=== PATIENT | female | born 1960 | race Hispanic/Latino ===

== ENCOUNTER 2023-10-28 11:27 | Emergency (ER) | payer OTHER, SELFPAY ==
[2023-10-28 11:32] VITALS: BP 152/96
[2023-10-28 12:28] VITALS: BMI 20.2
[2023-10-28 12:36] VITALS: BP 145/78
[2023-10-28 12:43] LABS: % Basophils 0.7 % (0-2); % Eosinophils 1.3 % (0-6); % Immature Granulocytes 0.4 % (0-0.5); % Lymphocytes 16.2 % (20.5-51.1); % Monocytes 7.4 % (1.7-9.3); Absolute Basophils 0.1 10^3/uL (0-0.2); Absolute Eosinophils 0.2 10^3/uL (0-0.7); Absolute Immature Granulocytes 0.1 10^3/uL (0-0.05); Absolute Lymphocytes 1.8 10^3/uL (1.2-3.4); Absolute Monocytes 0.8 10^3/uL (0.1-0.6); Absolute Neutrophils 8.3 10^3/uL (1.4-6.5); Hematocrit 35.2 % (37.0-47.0); Hemoglobin 11.5 g/dL (12.0-16.0); Mean Corp Hgb Conc. 32.7 g/dL (33.0-37.0); Mean Corpuscular Hgb 29.2 pg (27.0-31.0); Mean Corpuscular Volume 89.3 fL (81.0-99.0); Mean Platelet Volume 8.2 fL (7.4-10.4); Nucleated Red Blood Cells % 0 %; Platelet Count 350 10^3/uL (130-400); Red Blood Cell Count 3.94 10^6/uL (4.20-5.40); Red Cell Dist. Width 16.7 % (11.5-14.5); White Blood Cell Count 11.2 10^3/uL (4.8-10.8)
[2023-10-28 12:49] LABS: ALT (SGPT) 23 U/L (0-35); AST (SGOT) 23 U/L (14-36); Albumin 3.6 g/dl (3.5-5.0); Alkaline Phosphatase 104 U/L (38-126); Blood Urea Nitrogen 11 mg/dl (7-17); Calcium 10.6 mg/dl (8.4-10.2); Carbon Dioxide 27 mmol/L (22-30); Chloride 103 mmol/L (98-107); Estimated Creatinine Clearance 83 ml/min; Glucose 226 mg/dl (70-99); Potassium 3.2 mmol/L (3.5-5.1); Sodium 135 mmol/L (135-145); Total Bilirubin 0.4 mg/dl (0.2-1.3); eGFR > 60.00
[2023-10-28 13:00] VITALS: BP 140/76
[2023-10-28] MEDS: NSS 500 IV (13:43)
[2023-10-28] MEDS: DILAUDID 0.5 MG IV ×2 (13:44→15:31)
[2023-10-28] MEDS: ZOFRAN 4 MG IV (13:44)
[2023-10-28 14:00] VITALS: BP 129/66
[2023-10-28 14:25] VITALS: BP 144/76
--- NOTE | 2023-10-28 14:41 | ED.GENMED ---
History of Present Illness
General
Chief Complaint: Swelling
Source: patient, records and family
Exam Limitations: other (language and used language line)
Time Seen by Provider: 10/28/23 13:07
Nursing documentation reviewed up to this point in time: agreed with
Travel History
Have you had any contact with someone who has COVID-19?: No
Do you have any symptoms of coronavirus? Fever > 100 degrees, chills, cough, shortness of breath, sore throat, loss of taste or smell, muscle aches, or headache?: No
History of Present Illness
History of Present Illness:
Patient is a 63-year-old female with a history of rheumatoid arthritis but not diabetes who presents with sudden onset of right-sided neck and facial pain with swelling that started yesterday evening. Patient denies fever or chills. Patient states
it hurts to swallow but does not necessarily feel obstructed. Patient denies any previous history of similar episodes. Patient denies any change in vision or voice. Patient denies chest pain or shortness of breath. Patient denies any GI or
symptoms. Patient has some discomfort in the right ear. Patient wears dentures.
Past History
Past History
ED Past Medical History: Arrthythmia, GERD, HTN and Other (Rheumatoid arthritis)
ED Past Surgical History: Appendectomy
Social History
Tobacco: Non-smoker
Alcohol: None
Review of Systems
Review of Systems
All Other Systems: ROS reviewed and negative except as documented in HPI and ROS
Constitutional: Denies fever, fatigue or chills
EENT: Reports sore throat (Right-sided), mouth pain and other (Right facial pain and swelling)
Respiratory: Reports no symptoms; Denies trouble breathing
Cardiac: Reports no symptoms
ABD/GI: Reports no symptoms
: Reports no symptoms
Musculoskeletal: Reports joint pain (Chronic and unchanged)
Skin: Reports no symptoms
Neurological: Reports no symptoms
Hematologic/Lymphatic: Reports no symptoms
Phy Exam
Physical Exam
Physical Exam:
Physical Exam
General: No apparent mild to moderate distress, alert and appropriate, well nourished, well hydrated
HENT: Normocephalic, supple with tender right anterior cervical as well as some mandibular lymphadenopathy, no thyromegaly. Patient a dentulous with upper and lower dentures. No apparent sialolithiasis and Stensen's duct.
TMs intact and clear. Nares patent and clear. Right-sided facial swelling and tenderness extending down into the right neck. Oropharynx shows swelling of the right tonsillar pillar
Eyes: Clear sclera, conjuctiva without injection
Heart: Regular rhythm and rate. No S3, S4. No murmur. No NVD, bruit
Lungs: No respiratory distress, no stridor, lung sounds clear and equal bilaterally
Abdomen: Soft, nontender, no organomegaly, no CVA tenderness, BS good
Neuro: Alert and oriented x 3, CN II - XII intact, no motor focality, no cerebellar dysfunction
Skin: no rash
Psychiatric: well kept. interactive and cooperative
Extremities: No edema, cyanosis. Good and equal peripheral pulses. Chronic rheumatic arthritis changes to her fingers
Scores
Heart Failure Risk
Heart Failure Risk Score: Not Applicable
Course
Orders/Labs/Results
Orders:
Orders
10/28/23 11:38
Electrocardiogram (*1) Urgent
Reason for Study: Atrial Fibrillation
EKG- Treatment ONCE
10/28/23 12:31
Complete Blood Count/With Diff Urgent
Comprehensive Metabolic Panel Urgent
10/28/23 13:18
CT Neck With Iv Contrast Urgent
Reason For Exam: swelling right neck and fface
0.9% Sodium Chloride 500 ml [Nss] 500 ml IV BOLUS
HYDROmorphone [Dilaudid] 0.5 mg IV NOW STA
Ondansetron Injectable [Zofran] 4 mg IV NOW STA
Abnormal Lab Results
10/28/23
12:31
WBC 11.2 H 10^3/uL
(4.8-10.8)
RBC 3.94 L 10^6/uL
(4.20-5.40)
Hgb 11.5 L g/dL
(12.0-16.0)
Hct 35.2 L %
(37.0-47.0)
MCHC 32.7 L g/dL
(33.0-37.0)
RDW 16.7 H %
(11.5-14.5)
Abs Immat Gran (auto) 0.1 H 10^3/uL
(0-0.05)
Absolute Neuts (auto) 8.3 H 10^3/uL
(1.4-6.5)
Absolute Monos (auto) 0.8 H 10^3/uL
(0.1-0.6)
Lymphocytes % 16.2 L %
(20.5-51.1)
Potassium 3.2 L mmol/L
(3.5-5.1)
Creatinine 0.5 L mg/dL
(0.6-1.0)
Glucose 226 H mg/dl
(70-99)
Calcium 10.6 H mg/dl
(8.4-10.2)
10/28/23 12:31
10/28/23 12:31
Vital Signs
Initial and Last Documented VS:
Initial Vital Signs
Temp Pulse Resp BP Pulse Ox
98.4 F 99 18 152/96 98
10/28/23 11:32 10/28/23 11:32 10/28/23 11:32 10/28/23 11:32 10/28/23 11:32
Last Documented Vital Signs
Temp Pulse Resp BP Pulse Ox
98.4 F 99 18 144/76 95
10/28/23 11:32 10/28/23 11:32 10/28/23 11:32 10/28/23 14:25 10/28/23 15:00
*Radiology
Radiology exam reviewed: radiology read reviewed (Inflammation of the parotid and submandibular glands)
*Pulse Oximetry
Patient hypoxic: no
*EKG
Interpreted by ED Provider?: NA
*Retail Pharmacy Technician Interpretation
Rate: Retail Pharmacy Technician- N/A
*Critical Care Note
Total Time (30-74mins, 75-104mins- exclusive of procedures): Not Applicable
Update Note
Update Note:
Through the language line discussed with the patient the findings and the fact that her blood sugar is elevated. Patient will go on steroids which may cause a further elevation in the sugar. Patient understands that if increasing pain or
difficulty swallowing or fever to return.
ED Attending Note
-
Portions of this chart may have been created with voice recognition software.� Occasional wrong word or��sound alike� substitutions may have occurred due to the inherent limitations of voice recognition software.
Discharge Plan
Departure
Patient Disposition: Home (Routine Discharge)
Date of Disposition: 10/28/23
Time of Disposition: 15:32
Patient with high blood pressure during this ER visit?: Yes
Condition: Fair
Covid-19: Not Applicable
Discharge Problem:
Acute parotitis
Instructions: Salivary Gland Infection (DC)
Prescriptions:
New
prednisone 20 mg tablet
20 mg PO BID Qty: 10 0RF
ondansetron 8 mg tablet,disintegrating
8 mg PO TID PRN (Reason: nausea and vomiting) Qty: 15 0RF
oxycodone 5 mg tablet
5 mg PO Q4H PRN (Reason: Pain) Qty: 10 0RF
clindamycin HCl 150 mg capsule
150 mg PO Q6H Qty: 30 0RF
No Action
metformin 500 mg Tablet
500 mg PO DAILY
atorvastatin 10 mg Tablet
10 mg PO DAILY
alendronate 70 mg Tablet
70 mg PO .Q WEEK ON SAT
prednisone 5 mg Tablet
5 mg PO DAILY
methotrexate sodium 2.5 mg Tablet
10 mg PO .Q WEEK BID ON MON
pantoprazole 40 mg Tablet,Delayed Release (Dr/Ec)
40 mg PO DAILY
verapamil 240 mg Tablet Extended Release
120 mg PO DAILY
mirtazapine 7.5 mg Tablet
7.5 mg PO HS
cholecalciferol (vitamin D3) [Vitamin D3] 25 mcg (1,000 unit) Tablet
25 mcg PO DAILY
aspirin 81 mg Capsule
81 mg PO DAILY
Referrals:
UNKNOWN - PT DOES,NOT KNOW [Family Provider] -
Yvette Dela Cruz MD [Active] - Call in 1-3 days for appt
Activity Restrictions/Additional Instructions:
Massage your face and suck on manuel or anything sour. Return if worsening pain, swelling or difficulty breathing or swallowing
Interventions
Interventions:
*Risk Screen - Suicide Last Done: 10/28/23 11:32
*General Assessment Last Done: 10/28/23 11:32
*Neglect/Abuse Screening Last Done: 10/28/23 11:32
*ED COVID-19 Vaccine History Last Done: 10/28/23 12:29
ED- Cardiac Assessment Last Done: 10/28/23 12:30
ED- Pulmonary Assessment Last Done: 10/28/23 12:30
ED-Skin Assessment Last Done: 10/28/23 12:30
Discharge Date and Time
Print Language: THAI
[2023-10-28 15:00] VITALS: BP 137/108
[2023-10-28] MEDS: CLEOCIN 300 MG PO (15:32)
[2023-10-28] MEDS: DECADRON 10 MG IV (15:32)
== END 2023-10-28 16:21 | disposition home or self-care (01) ==
LOC: EMR 11:27
PROVIDERS: EMERGENCY PHYSICIAN Emergency Medicine
DX: K11.21 Acute sialoadenitis (principal); I10 Essential (primary) hypertension
CPT/HCPCS: 99285; 96374; 96375 ×2; 96361; 96376; 70491; 80053; 85025; 93005; Q9967

== ENCOUNTER 2024-01-28 21:03 | Emergency (ER) | payer OTHER, SELFPAY ==
[2024-01-28 21:05] VITALS: BP 162/100
--- NOTE | 2024-01-28 21:57 | ED.GENMED ---
History of Present Illness
General
Chief Complaint: Heart Rate Problem
Source: patient, family and other (Language line slagger)
Exam Limitations: none
Time Seen by Provider: 01/28/24 21:36
Nursing documentation reviewed up to this point in time: agreed with
History of Present Illness
History of Present Illness:
Pleasant 63-year-old Vincentian-speaking female who presents with palpitations shortness of breath and headache that has been present for the last 24 hours. Patient denies chest pain. She reports no current shortness of breath. She has had a Holter
monitor in place by her manager agency that was just removed in the last week. Denies fever or chills. Reports no nausea or vomiting.
Vital signs are stable. Patient not hypoxic
Nursing note reviewed. I agree with nursing documentation up to this point in time.
Home Meds and allergies reviewed.
NUMBER AND COMPLEXITY OF PROBLEMS ADDRESSED AT THE ENCOUNTER
� Chronic conditions affecting care: Diabetes, atrial fibrillation, hyperlipidemia, palpitations
� Acute Exacerbation and/or Progression of Chronic Illness: Palpitations
� Differential Diagnosis includes: Palpitations, atrial fibrillation
AMOUNT AND/OR COMPLEXITY OF DATA TO BE REVIEWED AND ANALYZED
I performed an independent evaluation of the following and my interpretation is:
EKG: EKG shows normal sinus rhythm rate of 90 with normal intervals, normal axis. No evidence of acute ischemia present.
CT:
X-rays:
Ultrasound:
Laboratory Studies: White blood cell count of 10.7. H&H is 11.1/32.9. Platelets of 427 and elevated. BUN and creatinine are 25/0.7 possibly indicative of dehydration.
Other:
Review of other/old records: No results of the monitor seen
Clinical information was obtained by an independent historian:
Prescriptions/Medications Considered but not given:
Further testing considered but not performed:
RISK OF COMPLICATIONS AND/OR MORBIDITY OR MORTALITY OF PATIENT MANAGEMENT
Social determinants of health affecting care: Good Social Support
Discussion with other providers:
Escalation of care including admission/observation vs risk of discharge considered:
CRITICAL CARE NOTE:
Total Time (exclusive of procedures):
Update:
Past History
Past History
ED Past Medical History: Arrthythmia, GERD, HTN and Other (Rheumatoid arthritis)
ED Past Surgical History: Appendectomy
Social History
Tobacco: Non-smoker
Alcohol: None
Phy Exam
Physical Exam
Physical Exam:
Physical Exam
Vital signs and allergy list reviewed and agreed with.
GENERAL: Alert , in no apparent distress
EYE: pupils equal, EOMI, anicteric
NECK: Supple, no significant adenopathy. No masses. Trachea midline
ENT: Oropharynx is clear, mmm.
CARDIAC: Regular rate and rhythm . No M/R/G
LUNGS: Clear breath sounds bilaterally, no acute respiratory distress, no wheezes/rales/rhonchi
ABDOMEN: Soft, without focal tenderness, no r/g, no cvat. Normal BSx4q
NEUROLOGICAL: Alert and oriented, no focal neuro deficits
SKIN: Warm and dry, skin intact.
MUSCULOSKELETAL: No edema, well perfused. Moves all 4 extremities. Hands show signs of rheumatoid arthritis
PSYCH: Normal and appropriate interaction.
Course
Orders/Labs/Results
Orders:
Orders
01/28/24 21:09
Electrocardiogram (*1) Urgent
Reason for Study: Palpitations
EKG- Treatment ONCE
01/28/24 22:11
CBC/With Diff [Complete Blood Count/With Diff] Urgent
CMP [Comprehensive Metabolic Panel] Urgent
TSH Urgent
01/28/24 22:46
0.9% Sodium Chloride 1000 ml [Nss] 1,000 ml IV BOLUS
01/28/24 23:48
Troponin I Urgent
Abnormal Lab Results
01/28/24
22:11
RBC 3.74 L 10^6/uL
(4.20-5.40)
Hgb 11.1 L g/dL
(12.0-16.0)
Hct 32.9 L %
(37.0-47.0)
RDW 16.5 H %
(11.5-14.5)
Plt Count 427 H 10^3/uL
(130-400)
Abs Immat Gran (auto) 0.1 H 10^3/uL
(0-0.05)
Absolute Neuts (auto) 6.7 H 10^3/uL
(1.4-6.5)
Absolute Monos (auto) 1.3 H 10^3/uL
(0.1-0.6)
Immature Gran % 0.6 H %
(0-0.5)
Monocytes % 11.9 H %
(1.7-9.3)
BUN 25 H mg/dl
(7-17)
Glucose 149 H mg/dl
(70-99)
Calcium 12.7 H mg/dl
(8.4-10.2)
01/28/24 22:11
01/28/24 22:11
Vital Signs
Initial and Last Documented VS:
Initial Vital Signs
Temp Pulse Resp BP Pulse Ox
98 F 88 18 162/100 96
01/28/24 21:05 01/28/24 21:05 01/28/24 21:05 01/28/24 21:05 01/28/24 21:05
Last Documented Vital Signs
Temp Pulse Resp BP Pulse Ox
98 F 74 16 142/83 97
01/28/24 21:05 01/29/24 00:30 01/29/24 00:30 01/29/24 00:00 01/29/24 00:30
*Critical Care Note
Total Time (30-74mins, 75-104mins- exclusive of procedures): Not Applicable
Update Note
Update Note:
Using an american sign language interpreter, discussed all lab work with patient and family member. She has no further questions. Her symptoms have improved. Patient to be discharged home to follow-up with Dr. Mane
ED Attending Note
-
Portions of this chart may have been created with voice recognition software.� Occasional wrong word or��sound alike� substitutions may have occurred due to the inherent limitations of voice recognition software.
Discharge Plan
Departure
Patient Disposition: Home (Routine Discharge)
Date of Disposition: 01/29/24
Time of Disposition: 00:51
Patient with high blood pressure during this ER visit?: Yes
Discharge Problem:
Palpitation, Atrial fibrillation
Instructions: Atrial Fibrillation (DC), Palpitations (DC), BLOOD PRESSURE
Prescriptions:
No Action
metformin 500 mg Tablet
500 mg PO DAILY
atorvastatin 10 mg Tablet
10 mg PO DAILY
alendronate 70 mg Tablet
70 mg PO .Q WEEK ON MON
prednisone 5 mg Tablet
5 mg PO DAILY
methotrexate sodium 2.5 mg Tablet
10 mg PO .Q WEEK BID ON MON
pantoprazole 40 mg Tablet,Delayed Release (Dr/Ec)
40 mg PO DAILY
verapamil 240 mg Tablet Extended Release
120 mg PO DAILY
mirtazapine 7.5 mg Tablet
7.5 mg PO HS
cholecalciferol (vitamin D3) [Vitamin D3] 25 mcg (1,000 unit) Tablet
25 mcg PO DAILY
aspirin 81 mg Capsule
81 mg PO DAILY
prednisone 20 mg tablet
20 mg PO BID Qty: 10 0RF
ondansetron 8 mg tablet,disintegrating
8 mg PO TID PRN (Reason: nausea and vomiting) Qty: 15 0RF
oxycodone 5 mg tablet
5 mg PO Q4H PRN (Reason: Pain) Qty: 10 0RF
clindamycin HCl 150 mg capsule
150 mg PO Q6H Qty: 30 0RF
Referrals:
[facility] [Provider Group]
UNKNOWN - PT DOES,NOT KNOW [Family Provider] -
Activity Restrictions/Additional Instructions:
It was a pleasure meeting you and taking part in your care. We hope for your continued healing and wellness.
Please read discharge instructions in their entirety. However, they are for general education and may not describe your exact diagnosis at discharge. Information on your ER visit and medical conditions were discussed with you along with appropriate
follow up information...
If indicated, please take your medications as instructed and indicated on discharge paperwork.
Please schedule a follow up appointment as directed. Call to schedule an appointment
Please return to the emergency department with ANY change in, persisting, or worsening of symptoms. If any of your symptoms do not improve, or persist, or become more severe within 6-12 hours, please return to the emergency department for further
care.
Please return to the emergency department if you develop a headache, neck pain/stiffness, fever greater than 100.4F, chest pain, shortness of breath, persistent nausea, vomiting, slurred speech, difficulty walking, numbness/tingling, weakness, signs
of infection or any other symptoms that are worrisome to you.
If you have any questions or concerns please do not hesitate to call the Hospital at or E-mail me directly at [email or web address]
Interventions
Interventions:
*Risk Screen - Suicide Last Done: 01/28/24 21:05
*General Assessment Last Done: 01/28/24 21:05
*Neglect/Abuse Screening Last Done: 01/28/24 21:05
*ED COVID-19 Vaccine History Last Done: 01/29/24 00:37
ED- Cardiac Assessment Last Done: 01/29/24 00:37
ED- Pulmonary Assessment Last Done: 01/29/24 00:37
Discharge Date and Time
Print Language: PORTUGUESE
[2024-01-28 22:13] VITALS: BP 134/81
[2024-01-28 22:27] LABS: % Basophils 0.7 % (0-2); % Eosinophils 1.7 % (0-6); % Immature Granulocytes 0.6 % (0-0.5); % Lymphocytes 22.1 % (20.5-51.1); % Monocytes 11.9 % (1.7-9.3); Absolute Basophils 0.1 10^3/uL (0-0.2); Absolute Eosinophils 0.2 10^3/uL (0-0.7); Absolute Immature Granulocytes 0.1 10^3/uL (0-0.05); Absolute Lymphocytes 2.4 10^3/uL (1.2-3.4); Absolute Monocytes 1.3 10^3/uL (0.1-0.6); Absolute Neutrophils 6.7 10^3/uL (1.4-6.5); Hematocrit 32.9 % (37.0-47.0); Hemoglobin 11.1 g/dL (12.0-16.0); Mean Corp Hgb Conc. 33.7 g/dL (33.0-37.0); Mean Corpuscular Hgb 29.7 pg (27.0-31.0); Mean Platelet Volume 8.3 fL (7.4-10.4); Nucleated Red Blood Cells % 0 %; Platelet Count 427 10^3/uL (130-400); Red Blood Cell Count 3.74 10^6/uL (4.20-5.40); Red Cell Dist. Width 16.5 % (11.5-14.5); White Blood Cell Count 10.7 10^3/uL (4.8-10.8)
[2024-01-28 22:34] LABS: ALT (SGPT) 21 U/L (0-35); AST (SGOT) 25 U/L (14-36); Albumin 3.8 g/dl (3.5-5.0); Alkaline Phosphatase 92 U/L (38-126); Blood Urea Nitrogen 25 mg/dl (7-17); Calcium 12.7 mg/dl (8.4-10.2); Carbon Dioxide 25 mmol/L (22-30); Chloride 105 mmol/L (98-107); Glucose 149 mg/dl (70-99); Potassium 3.6 mmol/L (3.5-5.1); Sodium 137 mmol/L (135-145); Total Bilirubin 0.4 mg/dl (0.2-1.3); Total Protein 6.8 g/dl (6.3-8.2); eGFR > 60.00
[2024-01-28 23:00] VITALS: BP 132/74
[2024-01-28] MEDS: NSS 1000 IV (23:03)
[2024-01-28 23:05] LABS: TSH 1.48 uIU/ml (0.47-4.68)
[2024-01-29] VITALS: BP 142/83
[2024-01-29 00:18] LABS: Troponin I < 0.012 ng/ml
[2024-01-29 01:00] VITALS: BP 139/79
== END 2024-01-29 01:35 | disposition home or self-care (01) ==
LOC: EMR 21:03
PROVIDERS: EMERGENCY PHYSICIAN Student in an Organized Health Care Education/Training Program
DX: I48.91 Unspecified atrial fibrillation (principal); R00.2 Palpitations; I10 Essential (primary) hypertension; E11.9 Type 2 diabetes mellitus without complications
CPT/HCPCS: 99284; 96360; 80053; 84443; 84484; 85025; 93005

== ENCOUNTER 2024-07-27 12:58 | Emergency (ER) | payer OTHER, SELFPAY ==
[2024-07-27 13:07] VITALS: BP 134/84
[2024-07-27 13:45] LABS: COVID-19 Antigen Negative (Negative)
--- NOTE | 2024-07-27 14:49 | ED.GENMED ---
History of Present Illness
General
Chief Complaint: Cold/Flu/URI Symptoms
Time Seen by Provider: 07/27/24 14:23
History of Present Illness
History of Present Illness:
64-year-old female presents to the emergency department for evaluation of general malaise associated with a dry cough for the past 9 days. Cough is generally dry and nonproductive. No reported shortness of breath however is having left-sided rib
pain associated with coughing and deep breathing. Denies any nausea or vomiting. Poor appetite and oral intake over the past several days
Past History
Past History
ED Past Medical History: Arrthythmia, GERD, HTN and Other (Rheumatoid arthritis)
ED Past Surgical History: Appendectomy
Social History
Tobacco: Non-smoker
Alcohol: None
Review of Systems
Review of Systems
Allergies reviewed?: Yes
All Other Systems: ROS reviewed and negative except as documented in HPI and ROS
Phy Exam
Physical Exam
Physical Exam:
GEN: Well appearing, NAD, WDWN
HEENT: Oral mucosa moist, no scleral icterus
Cardiac: Regular rate and rhythm, no murmurs
Lung: No respiratory distress, no tachypnea, bibasilar crackles
MSK: No gross deformity or injuries
Skin: Good color, no pallor or jaundice, no rashes
Neuro: AO x3, moves all extremities freely
Psych: Calm, cooperative
Course
Orders/Labs/Results
Orders:
Orders
07/27/24 13:11
CR Chest - 2 Views Urgent
Reason For Exam: cough left rib pain
07/27/24 13:14
COVID-19 Antigen Urgent
Source: Nasal Swab
Influenza A+B Rapid Molecular Urgent
PAGE Source: Nasal Swab
Specimen Description:
07/27/24 14:48
0.9% Sodium Chloride 1000 ml [Nss] 1,000 ml IV BOLUS
07/27/24 15:02
Complete Blood Count/With Diff Urgent
Comprehensive Metabolic Panel Urgent
07/27/24 15:38
Doxycycline [Vibramycin] 100 mg PO NOW STA
Abnormal Lab Results
07/27/24
15:02
RBC 4.16 L 10^6/uL
(4.20-5.40)
MCHC 31.8 L g/dL
(33.0-37.0)
RDW 15.5 H %
(11.5-14.5)
Plt Count 445 H 10^3/uL
(130-400)
Abs Immat Gran (auto) 0.1 H 10^3/uL
(0-0.05)
Absolute Monos (auto) 0.9 H 10^3/uL
(0.1-0.6)
Immature Gran % 0.8 H %
(0-0.5)
Monocytes % 10.2 H %
(1.7-9.3)
Creatinine 0.5 L mg/dL
(0.6-1.0)
Glucose 102 H mg/dl
(70-99)
Calcium 11.6 H mg/dl
(8.4-10.2)
AST 38 H U/L
(14-36)
ALT 40 H U/L
(0-35)
07/27/24 15:02
07/27/24 15:02
Vital Signs
Initial and Last Documented VS:
Initial Vital Signs
Temp Pulse Resp BP Pulse Ox
98.2 F 78 18 134/84 95
07/27/24 13:07 07/27/24 13:07 07/27/24 13:07 07/27/24 13:07 07/27/24 13:07
Last Documented Vital Signs
Temp Pulse Resp BP Pulse Ox
98.2 F 78 18 138/81 97
07/27/24 13:07 07/27/24 13:07 07/27/24 13:07 07/27/24 16:00 07/27/24 16:15
MDM/Problems Addressed
MDM/Problems Addressed:
Suspected mycoplasma pneumonia given bibasilar crackles despite clear chest x-ray. Labs reassuring. Given IV fluids due to lack of p.o. intake recently. Suitable for management at home
*Critical Care Note
Total Time (30-74mins, 75-104mins- exclusive of procedures): Not Applicable
ED Attending Note
-
Portions of this chart may have been created with voice recognition software.� Occasional wrong word or��sound alike� substitutions may have occurred due to the inherent limitations of voice recognition software.
Discharge Plan
Departure
Patient Disposition: Home (Routine Discharge)
Date of Disposition: 07/27/24
Time of Disposition: 15:46
Patient with high blood pressure during this ER visit?: No
Discharge Problem:
Mycoplasma pneumonia
Instructions: Pneumonia in adults - Discharge instructions
Prescriptions:
New
doxycycline monohydrate 100 mg capsule
100 mg PO BID 5 Days Qty: 9 0RF
No Action
metformin 500 mg Tablet
500 mg PO DAILY
atorvastatin 10 mg Tablet
10 mg PO DAILY
alendronate 70 mg Tablet
70 mg PO .Q WEEK ON MON
prednisone 5 mg Tablet
5 mg PO DAILY
methotrexate sodium 2.5 mg Tablet
10 mg PO .Q WEEK BID ON MON
pantoprazole 40 mg Tablet,Delayed Release (Dr/Ec)
40 mg PO DAILY
verapamil 240 mg Tablet Extended Release
120 mg PO DAILY
mirtazapine 7.5 mg Tablet
7.5 mg PO HS
cholecalciferol (vitamin D3) [Vitamin D3] 25 mcg (1,000 unit) Tablet
25 mcg PO DAILY
aspirin 81 mg Capsule
81 mg PO DAILY
prednisone 20 mg tablet
20 mg PO BID Qty: 10 0RF
ondansetron 8 mg tablet,disintegrating
8 mg PO TID PRN (Reason: nausea and vomiting) Qty: 15 0RF
oxycodone 5 mg tablet
5 mg PO Q4H PRN (Reason: Pain) Qty: 10 0RF
clindamycin HCl 150 mg capsule
150 mg PO Q6H Qty: 30 0RF
Referrals:
UNKNOWN - PT DOES,NOT KNOW [Family Provider] -
Activity Restrictions/Additional Instructions:
you may start the antibiotic prescription tomorrow morning, as we gave you dose here tonight
Interventions
Interventions:
*Risk Screen - Suicide Last Done: 07/27/24 15:07
*General Assessment Last Done: 07/27/24 15:03
*Neglect/Abuse Screening Last Done: 07/27/24 15:07
ED- Fall Risk Assessment Last Done: 07/27/24 16:35
*ED COVID-19 Vaccine History Last Done: 07/27/24 15:03
*Nursing Disposition Last Done: 07/27/24 16:35
ED- Pulmonary Assessment Last Done: 07/27/24 15:07
Discharge Date and Time
Discharge Date/Time: 07/27/24 16:35
Print Language: [email or web address]
[2024-07-27] MEDS: NSS 1000 IV (15:02)
[2024-07-27 15:05] VITALS: BP 128/79
[2024-07-27 15:16] LABS: % Basophils 0.5 % (0-2); % Eosinophils 2.2 % (0-6); % Immature Granulocytes 0.8 % (0-0.5); % Lymphocytes 23.1 % (20.5-51.1); % Monocytes 10.2 % (1.7-9.3); % Neutrophils 63.2 % (42.2-75.2); Absolute Eosinophils 0.2 10^3/uL (0-0.7); Absolute Immature Granulocytes 0.1 10^3/uL (0-0.05); Absolute Monocytes 0.9 10^3/uL (0.1-0.6); Absolute Neutrophils 5.5 10^3/uL (1.4-6.5); Hemoglobin 12.1 g/dL (12.0-16.0); Mean Corp Hgb Conc. 31.8 g/dL (33.0-37.0); Mean Corpuscular Hgb 29.1 pg (27.0-31.0); Mean Corpuscular Volume 91.3 fL (81.0-99.0); Mean Platelet Volume 8.5 fL (7.4-10.4); Nucleated Red Blood Cells % 0 %; Platelet Count 445 10^3/uL (130-400); Red Blood Cell Count 4.16 10^6/uL (4.20-5.40); Red Cell Dist. Width 15.5 % (11.5-14.5); White Blood Cell Count 8.6 10^3/uL (4.8-10.8)
[2024-07-27 15:28] LABS: ALT (SGPT) 40 U/L (0-35); AST (SGOT) 38 U/L (14-36); Albumin 3.9 g/dl (3.5-5.0); Alkaline Phosphatase 88 U/L (38-126); Blood Urea Nitrogen 14 mg/dl (7-17); Calcium 11.6 mg/dl (8.4-10.2); Carbon Dioxide 28 mmol/L (22-30); Chloride 100 mmol/L (98-107); Glucose 102 mg/dl (70-99); Potassium 3.6 mmol/L (3.5-5.1); Sodium 136 mmol/L (135-145); Total Bilirubin 0.6 mg/dl (0.2-1.3); Total Protein 7.4 g/dl (6.3-8.2); eGFR > 60.00
[2024-07-27 16:00] VITALS: BP 138/81
[2024-07-27] MEDS: VIBRAMYCIN 100 MG PO (16:22)
== END 2024-07-27 16:35 | disposition home or self-care (01) ==
LOC: EMR 12:58
PROVIDERS: Emergency Medicine; Physician Assistant; EMERGENCY PHYSICIAN Emergency Medicine
DX: J15.7 Pneumonia due to Mycoplasma pneumoniae (principal); I10 Essential (primary) hypertension; K21.9 Gastro-esophageal reflux disease without esophagitis; M06.9 Rheumatoid arthritis, unspecified
CPT/HCPCS: 99284; 71046; 80053; 85025; 87502; 87811